=== PATIENT | female | born 1985 | race Caucasian/White ===

== ENCOUNTER 2020-01-29 09:59 | Day surgery (SDC) | payer BC, MEDICAID ==
[2020-01-22 16:11] LABS: BASOPHILS % (AUTO) 0.4 % (0-1); EOSINOPHILS % (AUTO) 0.6 % (0-6); LYMPHOCYTES # (AUTO) 1.8 X10'3 (1.1-4.8); LYMPHOCYTES % (AUTO) 26.8 % (21-51); MEAN CORPUSCULAR HEMOGLOBIN 30.8 PG (27.0-31.0); MEAN CORPUSCULAR HGB CONC 34.1 g/dL (33.0-36.5); MEAN CORPUSCULAR VOLUME 90.4 FL (78-98); MEAN PLATELET VOLUME 8.5 FL (7.4-10.4); MONOCYTES # (AUTO) 0.4 X10'3 (0-0.9); MONOCYTES % (AUTO) 5.3 % (2-12); NEUTROPHILS # (AUTO) 4.5 X10'3 (1.8-7.7); NEUTROPHILS % (AUTO) 66.9 % (42-75); PRE OP HEMATOCRIT 38.7 % (35.0-45.0); PRE OP HEMOGLOBIN 13.2 g/dL (12.0-16.0); PRE OP PLATELET COUNT 239 X10'3 (140-440); RED BLOOD COUNT 4.28 X10'6 (4.20-5.60); RED CELL DISTRIBUTION WIDTH 12.4 % (11.5-14.5)
[2020-01-22 16:19] LABS: CLARITY,URINE CLEAR (Clear); COLOR,URINE YELLOW (Yellow); GLUCOSE, URINE NEGATIVE (Neg); KETONES,URINE NEGATIVE (Neg); LEUKOCYTE ESTERASE ,URINE NEGATIVE (Neg); NITRITES, URINE NEGATIVE (Neg); OCCULT BLOOD,URINE NEGATIVE (Neg); PROTEIN,URINE NEGATIVE (Neg); UROBILINOGEN,URINE 0.2 E.U/dL (0.2-1.0)
[2020-01-22 16:27] LABS: ALBUMIN 4.2 G/DL (3.4-5.0); ALBUMIN/GLOBULIN RATIO 1.3 (1.1-1.5); ALKALINE PHOSPHATASE 56 IU/L (46-116); BLOOD UREA NITROGEN 11 MG/DL (7-18); BUN/CREATININE RATIO 10.8 (6.6-38.0); CHLORIDE 106 MMOL/L (99-107); CREATININE 1.02 MG/DL (0.40-0.90); PRE OP ALT 38 U/L (30-65); PRE OP ANION GAP 7 (8-16); PRE OP AST 22 U/L (10-37); PRE OP BILIRUB, TOTAL 0.4 MG/DL (0.0-1.0); PRE OP GLUCOSE 77 MG/DL (70-104); PRE OP POTASSIUM 3.5 MMOL/L (3.4-5.1); PRE OP SODIUM 141 MMOL/L (135-145); TOTAL CARBON DIOXIDE 28.5 MMOL/L (24-32); TOTAL PROTEIN 7.4 G/DL (6.4-8.2); eGFR 63 ML/MIN
[2020-01-22 16:28] LABS: PRE OP PROTIME 10.6 SECONDS (9.0-12.0)
[2020-01-22 16:29] LABS: UA COLLECTION TYPE NON-SPECIFIED
[~2020-01-29] VITALS: Ht 157.5 cm; Wt 75.0 kg
[2020-01-29 09:45] VITALS: BP 124/73
[~2020-01-29 09:59] MED LIST: NO HOME MEDS; acetaminophen 325mg tablet PO ONE; ascorbic acid 500mg tablet PO ONE; ceFAZolin 1GM/D5W- ADD-VANTAGE 50 ML IV ONE; cefazolin/dext.iso 2gm/100ml 100 ML IV ONE; celeCOXIB 100mg capsule PO ONE; famotidine 20mg tablet PO ONE; gabapentin 300mg capsule PO ONE; metoclopramide 5 mg/ml inj IV ONE; ringers solution, lacted 1,000 ML IV SCH; vancomycin 1,500 MG in NS 300ml IV soln IV ONE
[2020-01-29] MEDS ORDERED: ringers solution, lacted 1,000 ML IV SCH (10:28)
[2020-01-29] MEDS ORDERED: ondansetron/PF 4mg/2ml inj IV PRN (10:30)
[2020-01-29] MEDS ORDERED: meperidine/PF 25mg/ml syringe IV PRN ×3 (10:30)
[2020-01-29] MEDS ORDERED: proCHLORperazine 10 MG/2 ml inj IV PRN (10:30)
[2020-01-29] MEDS ORDERED: morphine 2 MG/ML inj. syringe IV PRN (10:30)
[2020-01-29] MEDS ORDERED: morphine 4 MG/ML inj SYRINge IV PRN (10:30)
[2020-01-29] MEDS ORDERED: BUPIVAcaine/PF 2.5 mg/ml (0.25%) 30ml vial ONE ×2 (10:47→12:14)
[2020-01-29] MEDS ORDERED: fentaNYL/PF 50MCG/1 ML 2ML syringe ONE (10:52)
[2020-01-29] MEDS ORDERED: meperidine/PF 25mg/ml syringe ONE (10:52)
[2020-01-29] MEDS ORDERED: ketorolac trometh. 30mg/ml inj. ONE (10:52)
[2020-01-29] MEDS ORDERED: LIDOcaine 1%/PF 5ML 10 MG/ML VIAL ONE (10:52)
[2020-01-29] MEDS ORDERED: dexamethasone sod phosphate 10mg/ml inj ONE (10:52)
[2020-01-29] MEDS ORDERED: propofol 10mg/ml 20ml vial IV ONE (10:52)
[2020-01-29] MEDS ORDERED: ondansetron/PF 4mg/2ml inj ONE (10:52)
[2020-01-29] MEDS ORDERED: midazolam 2 mg/2 ml injection ONE (10:52)
[2020-01-29] MEDS ORDERED: sevoflurane 250ml liquid IH ONE (10:52)
[2020-01-29 12:39] VITALS: BP 103/69
--- NOTE | 2020-01-29 12:39 | NUR ---
Received from OR via [facility], accompanied by Anesthesiologist CB and report given by Anesthesiolgist. PATIENT WITH BIAS WRAP THAT IS CDI TO RIGHT KNEE. + DP AND MOVEMENT TO FOOT AND TOES TO RIGHT LE. DENIES PAIN AT THIS TIME. 10L MASK ON WITH 100% SATURATIONS. 20G PIV IN L LEFT UE RUNNING LR AT 100. Addendum: 01/29/20 at 1251 by Roberto Carlos Lorenz RN, RN Amended: Links added.
[2020-01-29 12:49] VITALS: BP 101/60
[2020-01-29 12:59] VITALS: BP 104/63
[2020-01-29 13:09] VITALS: BP 99/65
[2020-01-29 13:19] VITALS: BP 101/67
--- NOTE | 2020-01-29 13:29 | NUR ---
All dc criteria for discharge home has been met. IV taken out without complications. All questions answered regarding dc paperwork. Vss. Significant other present to take patient home. Dressings cdi and vital signs stable. Taken out via wheelchair to personal vehicle where patient taken home by family/friend. Addendum: 01/29/20 at 1339 by Roberto Carlos Lorenz RN, RN Amended: Links added.
== END 2020-01-29 13:29 | disposition home or self-care (01) ==
LOC: PAS 09:59 → EDSTATUS 11:30 → PAS 13:29
PROVIDERS: ATTEND Orthopaedic Surgery
DX: S83.281A Other tear of lateral meniscus, current injury, right knee, initial encounter (principal); S83.241A Other tear of medial meniscus, current injury, right knee, initial encounter; M94.261 Chondromalacia, right knee; D16.21 Benign neoplasm of long bones of right lower limb; M17.0 Bilateral primary osteoarthritis of knee; D68.51 Activated protein C resistance; D68.59 Other primary thrombophilia; E66.8 Other obesity; Z68.30 Body mass index [BMI] 30.0-30.9, adult; Z98.890 Other specified postprocedural states; Z87.891 Personal history of nicotine dependence; Z72.89 Other problems related to lifestyle; Z86.718 Personal history of other venous thrombosis and embolism; Z79.899 Other long term (current) drug therapy; Z79.01 Long term (current) use of anticoagulants; Z11.59 Encounter for screening for other viral diseases; X58.XXXA Exposure to other specified factors, initial encounter; Y93.89 Activity, other specified; Y92.89 Other specified places as the place of occurrence of the external cause; Y99.8 Other external cause status
CPT/HCPCS: 27355; 29873; 29879; 29880; 36415; 80053; 81003; 82948; 85025; 85610; 85730; J0690; J1100; J1885; J2175; J2250; J2405; J2704; J2765; J3010; J3370; J3490; J7040; J7120; U0003; A4215; A4618; A6250; A6449